=== PATIENT | female | born 1995 | race Hispanic/Latino ===

== ENCOUNTER → 2022-08-02 11:31 | Outpatient (CLI) | payer OTHER, SELFPAY ==
[2022-08-02 13:43] LABS: Hematocrit 33.2 % (36-46); Mean Corpuscular Hemoglobin 25.6 PG (26-34); Mean Corpuscular Volume 77.6 fL (80-100); Platelet Count 299 X10^3/uL (150-400); Red Blood Cell Count 4.28 X10^6/uL (4.0-5.2); White Blood Cell Count 9.6 X10^3/uL (4.5-11.0)
[2022-08-02 14:23] LABS: TSH w/ Reflex to FT4 6.52 uIU/mL (0.47-4.68)
[2022-08-02 14:48] LABS: Free T4, Direct Thyroxine 0.84 ng/dL (0.78-2.19)
[2022-08-02 16:17] LABS: Vitamin D 25 Hydroxy (D3) 32.5 ng/mL (30.0-100.0)
== END ==
PROVIDERS: PCP Registered Nurse Diabetes Educator; Referring Provider Registered Nurse Diabetes Educator; Visit Provider Registered Nurse Diabetes Educator
DX: E03.9 Hypothyroidism, unspecified (principal); R53.83 Other fatigue
CPT/HCPCS: 36415; 82306; 84439; 84443; 85027

== ENCOUNTER → 2023-02-01 10:16 | Outpatient (CLI) | payer OTHER, SELFPAY ==
[2023-02-01 11:15] LABS: Hematocrit 35.6 % (36-46); Hemoglobin 11.9 g/dL (12.0-16.0); Mean Corpuscular HGB Conc 33.4 % (30-36); Mean Corpuscular Hemoglobin 27.5 PG (26-34); Mean Corpuscular Volume 82.3 fL (80-100); Platelet Count 301 X10^3/uL (150-400); Red Blood Cell Count 4.32 X10^6/uL (4.0-5.2); Red Cell Distribution Width 14.2 % (11.6-14.8); White Blood Cell Count 7.2 X10^3/uL (4.5-11.0)
[2023-02-01 12:09] LABS: TSH w/ Reflex to FT4 2.36 uIU/mL (0.47-4.68)
== END ==
PROVIDERS: PCP Registered Nurse Diabetes Educator; Referring Provider Registered Nurse Diabetes Educator; Visit Provider Registered Nurse Diabetes Educator
DX: D50.9 Iron deficiency anemia, unspecified (principal); E03.9 Hypothyroidism, unspecified
CPT/HCPCS: 36415; 84443; 85027

== ENCOUNTER → 2023-10-04 16:53 | Outpatient (CLI) | payer OTHER, SELFPAY ==
[2023-10-04 18:18] LABS: HEMOLYSIS < 15 (0-50); Iron 64 ug/dL (37-170)
[2023-10-04 18:32] LABS: Percent Iron Saturation 16 % (15-50); Total Iron Binding Capacity 401 ug/dL (265-497); Transferrin 333 mg/dL (206-381)
[2023-10-04 18:44] LABS: HCG Quantitative /Beta subunit < 2.4 mIU/mL
[2023-10-04 18:51] LABS: TSH w/ Reflex to FT4 4.58 uIU/mL (0.47-4.68)
== END ==
PROVIDERS: PCP Registered Nurse Diabetes Educator; Referring Provider Physician Assistant; Visit Provider Physician Assistant
DX: N91.2 Amenorrhea, unspecified (principal); D64.9 Anemia, unspecified
CPT/HCPCS: 36415; 83540; 83550; 84443; 84702; 85014; 85018

== ENCOUNTER → 2023-10-11 14:15 | Outpatient (CLI) | payer OTHER, SELFPAY ==
--- NOTE | 2023-10-11 14:16 | DI.US.S_ITS ---
PROCEDURE: US PELVIC COMPLETE INDICATIONS: AMENORRHEA TECHNIQUE: Real-time scanning was performed of the pelvic organs, with image documentation. Additional endovaginal scanning was necessary due to incomplete visualization of the adnexal and endometrial structures by transabdominal scanning. COMPARISON: None. FINDINGS: Uterus: Uterus is anteverted and normal in size at 7.6 x 4.3 x 4 point cm. The myometrium is heterogeneous. The endometrium measures 10 mm combined thickness. Ovaries: The right ovary measures 2.9 x 1.9 x 2.3 cm, with a calculated ovarian volume of 6.6 cc. The left ovary measures 3.8 x 2.6 x 2.8 cm, with a calculated ovarian volume of 14.2 cc. The ovaries have a normal sonographic appearance. Less than 12 follicles can be seen in each ovary. No adnexal masses are seen. Other: No pathologic free abdominal or pelvic fluid. IMPRESSION: Normal pelvic ultrasound. We strive to produce accurate, complete, and clear reports of imaging services. To assist us in improving patient care, this report was composed using standard report templates and voice recognition software. Therefore, it may contain abnormal punctuation, insertions and/or omissions. Occasional wrong-word or sound-alike substitutions may occur. Though we review the report and make efforts to correct it, we do recommend that the report be read carefully in proper context to recognize any text inaccuracies. Dictated by: Sarah Noland M.D. on 10/11/2023 at 16:21 Approved by: Sarah Noland M.D. on 10/11/2023 at 16:22
== END ==
PROVIDERS: PCP Registered Nurse Diabetes Educator; Referring Provider Registered Nurse Diabetes Educator; Visit Provider Registered Nurse Diabetes Educator
DX: N91.2 Amenorrhea, unspecified (principal); Z87.42 Personal history of other diseases of the female genital tract
CPT/HCPCS: 76830; 76856

== ENCOUNTER → 2023-10-24 09:05 | Outpatient (CLI) | payer OTHER, SELFPAY ==
[2023-10-24 14:44] LABS: Free T3, Triiodothyronine Free 4.55 pg/mL (2.77-5.27); Free T4, Direct Thyroxine 0.99 ng/dL (0.78-2.19)
== END ==
PROVIDERS: PCP Registered Nurse Diabetes Educator; Referring Provider Physician Assistant; Visit Provider Physician Assistant
DX: E03.9 Hypothyroidism, unspecified (principal)
CPT/HCPCS: 36415; 84439; 84481

== ENCOUNTER → 2024-01-02 09:43 | Outpatient (CLI) | payer OTHER, SELFPAY ==
[2024-01-02 11:09] LABS: Pregnancy Test Urine Negative (Negative)
[2024-01-02 12:27] LABS: Urine Chlamydia NOT DETECTED; Urine N gonorrhoeae NOT DETECTED
== END ==
PROVIDERS: PCP Registered Nurse Diabetes Educator; Visit Provider Physician Assistant
DX: R30.0 Dysuria (principal); Z11.3 Encounter for screening for infections with a predominantly sexual mode of transmission
CPT/HCPCS: 81025; 87491; 87591

== ENCOUNTER → 2024-02-21 13:56 | Outpatient (CLI) | payer OTHER, SELFPAY ==
[2024-02-21 15:19] LABS: HCG Quantitative /Beta subunit 14.7 mIU/mL
[2024-02-21 15:23] LABS: Free T3, Triiodothyronine Free 4.56 pg/mL (2.77-5.27); Free T4, Direct Thyroxine 1.09 ng/dL (0.78-2.19)
[2024-02-21 15:37] LABS: Thyroid Stimulating Hormone 5.46 uIU/mL (0.47-4.68)
== END ==
LOC: LAB 13:58
PROVIDERS: PCP Registered Nurse Diabetes Educator; Referring Provider Physician Assistant; Visit Provider Physician Assistant
DX: Z34.90 Encounter for supervision of normal pregnancy, unspecified, unspecified trimester (principal); E03.9 Hypothyroidism, unspecified
CPT/HCPCS: 36415; 84439; 84443; 84481; 84702

== ENCOUNTER → 2024-04-08 08:04 | Outpatient (CLI) | payer OTHER, SELFPAY ==
[2024-04-08 09:28] LABS: Glucose Fasting 128 mg/dL (70-100)
[2024-04-08 10:35] LABS: Glucose 1 Hour 237 mg/dL (70-170)
[2024-04-08 10:38] LABS: Glucose Tol Interpretation INTERPRETATION
[2024-04-08 11:52] LABS: Glucose 2 Hour 176 mg/dL (70-140)
== END ==
LOC: LAB 08:07
PROVIDERS: PCP Registered Nurse Diabetes Educator; Referring Provider Advanced Practice Midwife; Visit Provider Advanced Practice Midwife
DX: Z34.01 Encounter for supervision of normal first pregnancy, first trimester (principal); R73.09 Other abnormal glucose
CPT/HCPCS: 36415; 82951; 82952

== ENCOUNTER 2025-07-10 06:50 | Day surgery (SDC) | payer OTHER, SELFPAY ==
[2025-07-03 13:03] VITALS: BMI 42.7
--- NOTE | 2025-07-09 19:37 | PM.PREOP ---
Pre-operative Note Interval Note History & Physical reviewed/Exam performed by Physician: Yes Changes to H&P: No ASA Class (for procedural sedation): I
[2025-07-10] VITALS (12 sets, daily range): BP systolic 123–137; BP diastolic 59–88; PULSE 78–100; RESP 11–30; TEMP 36.1–36.9; O2SAT 92–96; BMI 42.7
--- NOTE | 2025-07-10 | PATH_ITS ---
[facility] Accession Number: [id number] No. of containers..01 Tissue . 01 Material submitted: . gallbladder - GALLBLADDER . 01 Diagnosis: GALLBLADDER, CHOLECYSTECTOMY: Mild chronic cholecystitis with cholelithiasis. Negative for dysplasia or malignancy. One benign lymph node. [facility] 07/15/2025 1414 Local . 01 Electronically signed: . Barrera Phelps MD, Pathologist NPI- [id number] . 01 Gross description: . Received in formalin with two identifiers and gallbladder, is an intact gallbladder 10.2 x 3.0 x 2.9 cm with an unremarkable external surface. The cystic duct margin is inked blue and a cheema lymph node candidate is identified 1.8 cm in greatest dimension. There are multiple yellow, smooth calculi up to 3.1 cm in greatest dimension grossly obstructing the cystic duct and admixed with dark green mucoid bile. The mucosa is green, velvety, and slightly denuded with no yellow discoloration, polyps, or lesions identified. The callaway average 0.4 cm thick and b2b outside sales representative sections to include the cystic duct margin, one-half of the bisected lymph node candidate, and full thickness sections are submitted in cassette A1. ([id number]) /VIVIAN 07/12/2025 1950 Local . 01 Pathologist provided ICD-10: K82.0 . 01 CPT . 071287 Specimen Comment: A courtesy copy of this report has been sent to [facility] Performed at: [address] [facility] [id number] MD Michael Hector MD Phone: [phone]
--- NOTE | 2025-07-10 07:14 | PM.PREOP ---
Pre-operative Note Interval Note History & Physical reviewed/Exam performed by Physician: Yes Changes to H&P: No ASA Class (for procedural sedation): I
[2025-07-10] MEDS: LACTATED RINGERS 1,000 ML 42 ML IV ×2 (07:35→10:37)
[2025-07-10] MEDS: ACETAMINOPHEN IV 1,000 MG/100 ML VIAL 400 MG IV (07:35)
[2025-07-10] MEDS: SCOPOLAMINE 1 PATCH TOP (07:36)
[2025-07-10] MEDS: HEPARIN 5,000 UNIT/ML VIAL 5000 UNIT SUBCUT (07:41)
--- NOTE | 2025-07-10 08:41 | SUR.OPER ---
Supine on padded OR bed, head on pillow, arms gel-padded and tucked at sides, legs uncrossed, safety belt at thigh, tape over blanket over lower legs .
[2025-07-10] MEDS: BUPivacaine 0.25% W/ EPI (PF) 30 ML VIAL 60 ML INJ (08:49)
--- NOTE | 2025-07-10 10:29 | P.OP_ITS ---
Operative Date/Time/Diagnoses Date of procedure: 07/10/25 Time of procedure: 10:29 Pre-op diagnosis: Calculous cholecystitis Post-op diagnosis: same Procedure & Clinicians Procedure: Robotic assisted laparoscopic cholecystectomy, attempted cholangiogram Same procedure(s) as scheduled: Yes Indications: 30yo F with calculous cholecystitis Surgeon: Faraz Montez Click Yes if Unassisted: Yes Anesthesia Type: General Operative Notes Findings: Distended gb, cystic duct and artery in opposite position, enlarged LN on gb, evidence for chronic cholecystitis, omental adhesions. Unable to complete IOCG due to tiny duct Closure Type: primary Specimen(s): other (gallbladder) Applied: none Estimated Blood Loss (mL): 20 Blood products transfused: none Procedure in detail: After informed consent and satisfactory general endotracheal anesthesia, the abdomen was prepped and draped in the usual sterile manner. The patient received appropriate preoperative antibiotics and DVT prophylaxis. Surgical time-out was performed with all team members in agreement. The pneumoperitoneum was established under direct vision using the Bruno direct trocar cutdown technique. An 0 Vicryl suture was placed in the fascia. Once the abdominal c avity was insufflated, the 10 mm 30 degree lens was inserted and no trauma secondary to the trocar insertion was identified. I performed bilateral TAP blocks using a total of 50 cc of 0.25% Marcaine with epinephrine. 25 cc of local was raised as a wheal under the transversus abdominis muscle bilaterally. An additional 10 cc was used in the skin incisions for a total of 60. Three additional 8 mm robotic trocars were inserted under direct vision in a transverse manner across the abdomen at the umbilical level. The patient was placed in reverse Trendelenburg, [id number] position. The robot was docked and the remainder of the procedure was completed robotically. The gallbladder was noted to be tense and distended and it had greater omental adhesions to it. The fundus of the gallbladder was retracted over the liver, the infundibulum was retracted laterally for proper exposure of the cystic duct and artery. We had the critical view of safety after skeletonization with 2 distinct structures entering the gallbladder. The gallbladder was very tense and distended and did spill bile from the graspers and this was irrigated and suctioned throughout and cleaned up at the end of the case. The patient was noted to have tiny stones in the dark bile. The critical view of safety was achieved with 2 distinct structures entering the gallbladder with segment 5 of the liver posterior. I attempted a cholangiogram on what I thought was the cystic duct which ultimately was determined to be the cystic artery. Her duct and artery were in opposite locations. Once the cystic artery was identified it was doubly clipped and divided with scissors. The amount of blood loss from this was not excessive. With the cystic artery out of the way, I then placed a clip on the cystic duct next to the gallbladder and performed a ductotomy. After multiple attempts I could not enter with a tiny lumen and ultimately the cystic duct was inadvertently completely divided so I retrieved the duct, placed two clips and abandoned further attempts at IOCG. The cystic duct and cystic artery were doubly clipped at this point. The adhesions between the gallbladder and liver were divided with hook cautery. The gallbladder was placed into an endo-pouch and removed. I then irrigated the right upper quadrant and cleaned out bile and blood with several liters of saline solution. This was all suctioned dry. I then inspected the liver bed in the clips and there was no bleeding or bile drainage noted. With this, the pneumoperitoneum was released, the robot was undocked, and the trocars were removed. There was no bleeding noted at the trocar sites. The 0 Vicryl [id number] suture in the fascia was tied and there were no palpable fascial defects. The trocars were removed. It the skin incisions were closed using 4-0 Monocryl in a subcuticular manner. Dermabond glue was applied as a final dressing. The estimated blood loss was minimal. The instrument sponge and needle counts were all correct x2. The patient tolerated the procedure well and was extubated in the operating room and transported to the recovery area in stable condition. Complications: none Post-operative Condition: stable Disposition: PACU Plan for aftercare: PACU then home
[2025-07-10] MEDS: ONDANSETRON 4 MG/2 ML INJ IV (10:47)
[2025-07-10] MEDS: METOCLOPRAMIDE 10 MG/2 ML INJ IV (11:02)
--- NOTE | 2025-07-10 11:43 | SUR.PHASEII ---
encouraged use of incentive spirometer and cough, deep breathing.
== END 2025-07-10 13:20 | disposition home or self-care (01) ==
PROVIDERS: PCP Registered Nurse Diabetes Educator; Referring Provider Surgery; Visit Provider Surgery
PROC: 0FT44ZZ Resection of Gallbladder, Percutaneous Endoscopic Approach (ICD-10-PCS; CPT 47563; principal; 2025-07-10 09:00)
DX: K80.10 Calculus of gallbladder with chronic cholecystitis without obstruction (principal); K66.0 Peritoneal adhesions (postprocedural) (postinfection)
CPT/HCPCS: 47562; S2900; 76000; 81025; J0131; J0689; J1100; J1171; J1644; J1885; J2250; J2405; J2704; J2765; J3010; Q9967